=== PATIENT | male | born 1940 | race Caucasian/White ===

== ENCOUNTER 2016-05-13 21:17 | Emergency (ER) | payer OTHER ==
[~2016-05-13] VITALS: Ht 170.2 cm; Wt 84.4 kg
[2016-05-13 21:25] VITALS: BP 109/58
--- NOTE | 2016-05-13 21:34 | NUR ---
AMBULATED TO ER BED 3
[2016-05-13] MEDS ORDERED: NACL 0.9% 500 ML IV ONE ×2 (21:35)
--- NOTE | 2016-05-13 21:55 | NUR ---
Patient being evaluated by DR. NELSON at bedside.
--- NOTE | 2016-05-13 22:05 | NUR ---
75Y/M PT BIB FAMILY TO ED WITH C/O SOB, HIGH BLOOD SUGAR OF 440 AT HOME. PT STATES TOOK 10 UNITS LANTUS INSULIN AT 2100, 14 UNITS LANTUS AT 2200. ALSO STATES HX OF DIABETES, PACEMAKER, A-FIB, OPEN HEART SURGERY, QUAD BYPASS, COLON CA, COPD, SMOKER, HTN, CHF, CARDIAC DISORDERS, DEPRESSION, CHRONIC PAIN IN BILAT. SHOULDERS AND KNEES. BLOOD SUGAR NOW 425. HOME MED LIST RECEIVED, SEE CHART. AAOX4, AMBULATORY WITH STEADY GATE. RESPIRATIONS ROOM AIR, EVEN AND UNLABORED, BILATERAL LUNGS DIMINISHED. O2 SAT 97%. NO C/O SOB, CP OR COUGH AT THIS TIME. STATES HAVING CHRONIC PAIN TO BILATERAL KNEES AND SHOULDER, 09/29. PLACE ON COMFORT POSITION, BED SIDERAILS UP, BED AT LOWEST POSITION. VSS, NO S/SX OF DISTRESS AT THIS TIME. ER MD MADE AWARE OF PATIENT STATUS.
--- NOTE | 2016-05-13 22:32 | NUR ---
LAB CALLED FOR CRITICAL BUN/CR 67/2.1, BS 449 Addendum: 05/13/[address] NELSON MADE AWARE
[2016-05-13] MEDS ORDERED: INSULIN HUMAN REGULAR 100 UNITS/ML 10 ML VIAL IVP ONE (22:45)
--- NOTE | 2016-05-13 23:30 | NUR ---
Patient appears to be resting comfortably in bed. Vital Signs within normal limits. Respirations even and unlabored.
[2016-05-14] MEDS ORDERED: INSULIN HUMAN REGULAR 100 UNITS/ML 10 ML VIAL IVP ONE
--- NOTE | 2016-05-14 00:34 | NUR ---
Patient discharged with v/s stable. Written and verbal after care instructions given and explained. Patient verbalized understanding. Ambulatory with steady gait. All questions addressed prior to discharge. Advised to follow up with PMD.
[2016-05-14 00:35] VITALS: BP 113/59
== END 2016-05-14 00:34 | disposition home or self-care (01) ==
LOC: MED 21:17
DX: F41.9 Anxiety disorder, unspecified (principal); E11.65 Type 2 diabetes mellitus with hyperglycemia; E87.5 Hyperkalemia; I48.91 Unspecified atrial fibrillation; I10 Essential (primary) hypertension; J44.9 Chronic obstructive pulmonary disease, unspecified
CPT/HCPCS: 36415; 71010; 80053; 82009; 82947; 82948; 84132; 84484; 85025; 85610; 85730; 93005; 96361; 96374; 96376; 99285; J1815; J7030